=== PATIENT | female | born 1985 | race Two or more races ===

== ENCOUNTER 2020-07-12 11:27 | Emergency (ER) | payer MEDICARE, OTHER ==
[~2020-07-12] VITALS: Ht 157.5 cm; Wt 72.6 kg
[2020-07-12 13:35] VITALS: BP 140/97
== END 2020-07-12 14:47 | disposition home or self-care (01) ==
LOC: ER 11:27
DX: L02.31 Cutaneous abscess of buttock (principal); B99.8 Other infectious disease

== ENCOUNTER 2020-07-26 20:46 | Emergency (ER) | payer MEDICARE, MEDICAID ==
[~2020-07-26] VITALS: Ht 157.5 cm; Wt 67.1 kg
[2020-07-27 01:00] VITALS: BP 138/99
== END 2020-07-27 01:11 | disposition home or self-care (01) ==
LOC: ER 20:53
DX: S93.491A Sprain of other ligament of right ankle, initial encounter (principal); M25.561 Pain in right knee; F32.9 Major depressive disorder, single episode, unspecified; E11.9 Type 2 diabetes mellitus without complications; Z98.890 Other specified postprocedural states; Z94.0 Kidney transplant status; X58.XXXA Exposure to other specified factors, initial encounter; Y93.89 Activity, other specified; Y92.89 Other specified places as the place of occurrence of the external cause; Y99.8 Other external cause status
CPT/HCPCS: 73562; 73610

== ENCOUNTER 2021-03-05 12:55 | Inpatient (IN) | payer MEDICARE, OTHER ==
[~2021-03-05] VITALS: Ht 157.5 cm; Wt 73.0 kg
[2021-03-05 16:00] LABS: Basophils # (auto) 0 10 ^3/uL (0-0.2); Eosinophils # (auto) 0 10 ^3/uL (0-0.8); Eosinophils % (auto) 0.3 % (0.0-7.0); Mean Corpuscular Hgb Conc. 32.7 g/dL (32.0-36.0); White Blood Cell 6.4 10^3/uL (4.4-10.8)
[2021-03-05 16:03] LABS: Basophils % (auto) 0.1 % (0.0-2.0); Hematocrit 24.9 % (36.0-46.0); Hemoglobin 8.1 g/dL (12.2-16.2); Lymphocytes # (auto) 0.4 10 ^3/uL (0.4-5.4); Lymphocytes % (auto) 5.6 % (10.0-50.0); Mean Corpuscular Hemoglobin 30.5 pg (28.0-32.0); Mean Corpuscular Volume 93.5 fL (80.0-100.0); Monocytes # (auto) 0.5 10 ^3/uL (0-1.3); Monocytes % (auto) 8.2 % (0.0-12.0); Neutrophils # (auto) 5.5 10 ^3/uL (1.6-8.6); Neutrophils % (auto) 85.8 % (37.0-80.0); Red Blood Cells 2.67 10^6/uL (4.0-5.20); Red Cell Distribution Width 15.7 % (11.8-14.3)
[2021-03-05 16:14] LABS: INR 1.1 (0.9-1.15); Partial Thromboplastin Time 35.8 sec (23.6-33.0)
[2021-03-05 16:18] LABS: Albumin 2.8 g/dL (3.4-5.0); Calcium 8.1 mg/dL (8.5-10.1); Potassium 5.3 mmol/L (3.5-5.1)
[2021-03-05 16:21] LABS: BUN/Creatinine Ratio 12.8; Bilirubin, Total 0.3 mg/dL (0.2-1.0); Total Protein 7.3 g/dL (6.4-8.2)
[2021-03-05 16:54] LABS: Urine Bacteria NONE SEEN /hpf (None Seen); Urine Blood 3+ /uL (Negative); Urine Specific Gravity 1.018 (1.001-1.035); Urine WBC 172 /hpf (0 - 5)
[2021-03-05] MEDS ORDERED: MORPHINE SULFATE INJECTION 2 MG/ML SYRG IV PRN (17:30)
[2021-03-05] MEDS ORDERED: NITROGLYCERIN 0.4 MG SL TAB SL PRN (17:30)
[2021-03-05 21:42] LABS: Magnesium 1.7 mg/dL (1.6-2.6); Phosphorus 1.7 mg/dL (2.5-4.90)
[2021-03-05] MEDS ORDERED: SODIUM CHLORIDE 0.9% 1,000 ML IV ONE (22:30)
[2021-03-06 00:57] LABS: Magnesium 1.6 mg/dL (1.6-2.6); Phosphorus 2.1 mg/dL (2.5-4.90)
[2021-03-06 02:36] VITALS: BP 116/72
[2021-03-06] MEDS ORDERED: PREG100C PO (03:54)
[2021-03-06] MEDS ORDERED: ASPI1TAB20 PO (03:54)
[2021-03-06] MEDS ORDERED: FLUO60TA7 PO (03:54)
[2021-03-06] MEDS ORDERED: PRE1T PO (03:54)
[2021-03-06] MEDS ORDERED: MESA4KIT3 RE (03:54)
[2021-03-06] MEDS ORDERED: MIDO2.5T3 PO (03:56)
[2021-03-06 05:00] VITALS: BP 134/85
[2021-03-06 08:26] LABS: Basophils # (auto) 0 10 ^3/uL (0-0.2); Eosinophils # (auto) 0 10 ^3/uL (0-0.8); Hematocrit 22.3 % (36.0-46.0); Lymphocytes # (auto) 0.4 10 ^3/uL (0.4-5.4); Monocytes # (auto) 0.3 10 ^3/uL (0-1.3); Red Cell Distribution Width 15.2 % (11.8-14.3)
[2021-03-06 08:28] LABS: Basophils % (auto) 0.2 % (0.0-2.0); Eosinophils % (auto) 0.3 % (0.0-7.0); Hemoglobin 7.1 g/dL (12.2-16.2); Lymphocytes % (auto) 8.3 % (10.0-50.0); Mean Corpuscular Hemoglobin 30.1 pg (28.0-32.0); Mean Corpuscular Hgb Conc. 31.9 g/dL (32.0-36.0); Mean Corpuscular Volume 94.3 fL (80.0-100.0); Neutrophils # (auto) 4.3 10 ^3/uL (1.6-8.6); Neutrophils % (auto) 85.2 % (37.0-80.0); Red Blood Cells 2.37 10^6/uL (4.0-5.20)
[2021-03-06 08:48] LABS: Potassium 4.1 mmol/L (3.5-5.1)
[2021-03-06 09:00] VITALS: BP 141/79
[2021-03-06 09:00] LABS: INR 1.09 (0.9-1.15); Partial Thromboplastin Time 39.4 sec (23.6-33.0)
[2021-03-06 09:03] LABS: % Iron Saturation 11.1 % (15-50)
[2021-03-06 09:24] LABS: Albumin 2.3 g/dL (3.4-5.0); BUN/Creatinine Ratio 11.9; Bilirubin, Total 0.3 mg/dL (0.2-1.0); Calcium 7.3 mg/dL (8.5-10.1); Total Protein 6.5 g/dL (6.4-8.2)
[2021-03-06] MEDS ORDERED: SODIUM FERR GLUC 62.5MG/5ML 125 MG in SODIUM CHL 0.9% 100 ML IV ONE (12:45)
[2021-03-06 13:00] VITALS: BP 132/67
[2021-03-06] MEDS ORDERED: ACETAMINOPHEN 500 MG TAB PO PRN (13:00)
[2021-03-06] MEDS ORDERED: PANTOPRAZOLE 40 MG/10 ML VIAL INJ IV ONE (13:00)
[2021-03-06] MEDS ORDERED: ALBUTEROL SULF HFA 90MCG INH 200DOSE IN PRN (13:00)
[2021-03-06] MEDS ORDERED: BUMETANIDE 2.5mg/10ml (0.25 mg/ml) INJ IV ONE (13:00)
[2021-03-06] MEDS ORDERED: ALBUMIN 25% 100 ML IV SCH (13:15)
[2021-03-06] MEDS ORDERED: ALBUMIN 25% 100 ML IV ONE (13:15)
[2021-03-06] MEDS ORDERED: LORazepam 0.5 MG TAB PO PRN (13:30)
[2021-03-06] MEDS ORDERED: ALUM & MAG HYDROX-SIMETH LIQ(MAALOX) 30 ML PO PRN (13:30)
[2021-03-06] MEDS ORDERED: NITROGLYCERIN 0.4 MG SL TAB SL PRN (13:30)
[2021-03-06] MEDS ORDERED: DOCUSATE SOD 100 MG CAP PO PRN (13:30)
[2021-03-06] MEDS ORDERED: ACETAMINOPHEN 325 MG TAB PO PRN (13:30)
[2021-03-06] MEDS ORDERED: HYDROcodone-ACET 5/325MG TAB PO PRN (13:30)
[2021-03-06] MEDS ORDERED: METOCLOPRAMIDE HCL 5MG/ml INJ 2ml VIAL IV PRN (13:30)
[2021-03-06] MEDS ORDERED: MORPHINE SULFATE INJECTION 2 MG/ML SYRG IV PRN ×2 (13:30)
[2021-03-06] MEDS: SODIUM CHLORIDE 0.9% 1,000 ML IV SCH (14:00)
[2021-03-06] MEDS: azaTHIOprine 50 MG TAB PO SCH (16:20)
[2021-03-06 17:00] VITALS: BP 130/67
[2021-03-06] MEDS ORDERED: BUMETANIDE 2.5mg/10ml (0.25 mg/ml) INJ IV SCH (18:00)
[2021-03-06 18:18] LABS: Basophils # (auto) 0 10 ^3/uL (0-0.2); Basophils % (auto) 0.1 % (0.0-2.0); Eosinophils # (auto) 0 10 ^3/uL (0-0.8); Lymphocytes # (auto) 0.5 10 ^3/uL (0.4-5.4); Neutrophils # (auto) 5.4 10 ^3/uL (1.6-8.6); White Blood Cell 6.3 10^3/uL (4.4-10.8)
[2021-03-06 18:20] LABS: Eosinophils % (auto) 0.2 % (0.0-7.0); Hematocrit 22.3 % (36.0-46.0); Lymphocytes % (auto) 7.7 % (10.0-50.0); Mean Corpuscular Hemoglobin 30.3 pg (28.0-32.0); Mean Corpuscular Hgb Conc. 31.5 g/dL (32.0-36.0); Monocytes # (auto) 0.4 10 ^3/uL (0-1.3); Monocytes % (auto) 5.9 % (0.0-12.0); Neutrophils % (auto) 86.1 % (37.0-80.0); Red Blood Cells 2.33 10^6/uL (4.0-5.20); Red Cell Distribution Width 15.6 % (11.8-14.3)
[2021-03-06 18:40] LABS: Albumin 2.8 g/dL (3.4-5.0); Calcium 7.4 mg/dL (8.5-10.1); Lactic Acid w/Reflex 3.1 mmol/L (0.4-2.0); Magnesium 2.3 mg/dL (1.6-2.6); Potassium 4.7 mmol/L (3.5-5.1)
[2021-03-06 19:03] LABS: Thyroid Stimulating Hormone 0.9 uIU/mL (0.358-3.74)
[2021-03-06 19:07] LABS: Cholesterol 75 mg/dL (< 200); HDL Cholesterol 18 mg/dL (40-59); LDL Cholesterol 44 mg/dL (< 100); Triglycerides 99 mg/dL (< 150)
[2021-03-06 19:08] LABS: BUN/Creatinine Ratio 11.2; Bilirubin, Total 0.3 mg/dL (0.2-1.0); CRP High Sensitivity 18.6 mg/dL (< 0.3); Total Protein 6.7 g/dL (6.4-8.2)
[2021-03-06] MEDS: ALBUMIN 25% 100 ML IV SCH (21:33)
[2021-03-06] MEDS: DOXYCYCLINE 100MG/250ML 250 ML IV SCH (21:34)
[2021-03-06] MEDS: PANTOPRAZOLE 40 MG/10 ML VIAL INJ IV SCH (21:34)
[2021-03-06] MEDS: MESALAMINE 1.2 GM PO SCH (21:34)
[2021-03-06 22:00] VITALS: BP 128/75
[2021-03-06] MEDS ORDERED: ENOXAPARIN SOD 40 MG/0.4 ML SYRINGE SC SCH (22:00)
[2021-03-06] MEDS ORDERED: BUDESONIDE (INHALATION) 180 MCG IH IN SCH (22:00)
[2021-03-07] VITALS (74 sets, daily range): BP systolic 53–207; BP diastolic 26–120
[2021-03-07] MEDS ORDERED: ETOMIDATE (2MG/ML) 20ML VIAL IV ONE ×2 (05:45→06:30)
[2021-03-07] MEDS ORDERED: SUCCINYLCHOLINE CHLORIDE 20 MG/ML 10ML VIAL IV ONE ×2 (05:45→06:30)
[2021-03-07] MEDS ORDERED: HEPARIN SODIUM (PORCINE) 5000 UNITS/ML 1ML VIAL ONE (05:56)
[2021-03-07] MEDS ORDERED: NOREPINEPHRINE 8 MG/250ML KIT 250 ML IV ONE (06:01)
[2021-03-07] MEDS ORDERED: MIDAZOLAM HCL 5 MG/ML-1ML VIAL ONE (06:06)
[2021-03-07] MEDS: MIDAZOLAM DRIP 50 mg/50mL 50 ML IV SCH ×2 (06:30→18:54)
[2021-03-07] MEDS: NOREPINEPHRINE 8 MG/250ML KIT 250 ML IV SCH (06:30)
[2021-03-07] MEDS: fentaNYL Drip 2500mCg/250mlNS 250 ML IV SCH (06:30)
[2021-03-07] MEDS ORDERED: MIDAZOLAM HCL 5 MG/ML-1ML VIAL IV ONE (06:30)
[2021-03-07] MEDS: PROPOFOL 100 ML IV SCH (06:30)
[2021-03-07] MEDS: HEPARIN SODIUM (PORCINE) 5000 UNITS/ML 1ML VIAL SC SCH ×3 (07:21→22:00)
[2021-03-07] MEDS: SODIUM CHLORIDE 0.9% 1,000 ML IV SCH ×3 (07:22→16:12)
[2021-03-07] MEDS: ALBUMIN 25% 100 ML IV SCH ×2 (07:23→13:49)
[2021-03-07] MEDS ORDERED: MESALAMINE 400mg Delayed Release Cap PO SCH (08:00)
[2021-03-07] MEDS: IVERMECTIN 3 MG TAB PO SCH (10:00)
[2021-03-07] MEDS: CHOLECALCIFEROL (VITD3) 2,000 UNIT CAP/TAB PO SCH (10:00)
[2021-03-07] MEDS: ASCORBIC ACID 1,000 MG TAB PO SCH (10:00)
[2021-03-07] MEDS: PANTOPRAZOLE 40 MG/10 ML VIAL INJ IV SCH ×2 (10:00→22:00)
[2021-03-07] MEDS: azaTHIOprine 50 MG TAB PO SCH (10:00)
[2021-03-07] MEDS: ZINC SULFATE 220mg CAP or TAB PO SCH (10:00)
[2021-03-07] MEDS: DexAMETHasone SOD PHOS 10MG/1ML VIAL INJ IV SCH (10:00)
[2021-03-07] MEDS: DOXYCYCLINE 100MG/250ML 250 ML IV SCH ×2 (10:29→22:00)
[2021-03-07] MEDS: MESALAMINE 1.2 GM PO SCH ×2 (11:11→22:00)
[2021-03-07] MEDS ORDERED: PHENYLEPHRINE IV 250 ML IV ONE (11:47)
[2021-03-07] MEDS ORDERED: SODIUM FERR GLUC 62.5MG/5ML 125 MG in SODIUM CHL 0.9% 100 ML IV SCH (12:00)
[2021-03-07 12:33] LABS: Basophils # (auto) 0 10 ^3/uL (0-0.2); Basophils % (auto) 0.2 % (0.0-2.0); Eosinophils # (auto) 0 10 ^3/uL (0-0.8); Eosinophils % (auto) 0.1 % (0.0-7.0); Hematocrit 22.6 % (36.0-46.0); Lymphocytes # (auto) 0.4 10 ^3/uL (0.4-5.4); Lymphocytes % (auto) 10.4 % (10.0-50.0); Mean Corpuscular Hemoglobin 29.6 pg (28.0-32.0); Mean Corpuscular Hgb Conc. 30.1 g/dL (32.0-36.0); Mean Corpuscular Volume 98.6 fL (80.0-100.0); Monocytes # (auto) 0.1 10 ^3/uL (0-1.3); Monocytes % (auto) 4.1 % (0.0-12.0); Neutrophils % (auto) 85.2 % (37.0-80.0); Nucleated Red Blood Cells % 0.3 %; Red Blood Cells 2.29 10^6/uL (4.0-5.20); Red Cell Distribution Width 16.5 % (11.8-14.3); White Blood Cell 3.5 10^3/uL (4.4-10.8)
[2021-03-07 12:36] LABS: Hemoglobin 6.8 g/dL (12.2-16.2)
[2021-03-07 12:54] LABS: Potassium 4.1 mmol/L (3.5-5.1)
[2021-03-07 13:14] LABS: Albumin 3.2 g/dL (3.4-5.0); Bilirubin, Total 0.3 mg/dL (0.2-1.0); Calcium 7.2 mg/dL (8.5-10.1); Total Protein 6.4 g/dL (6.4-8.2)
[2021-03-07] MEDS: IRON SUCROSE COMPLEX 200 MG in SODIUM CHL 0.9% 100 ML IV SCH (13:48)
[2021-03-07] MEDS: SODIUM BICARBONATE 650 MG TAB PO SCH ×3 (14:48→22:00)
[2021-03-07] MEDS ORDERED: EPOETIN ALFA-EPBX 10,000 UNIT/1ML VIAL SC ONE (19:15)
[2021-03-08] VITALS (87 sets, daily range): BP systolic 86–233; BP diastolic 54–138
[2021-03-08] MEDS: SODIUM CHLORIDE 0.9% 1,000 ML IV SCH ×2 (04:00→13:30)
[2021-03-08] MEDS: SODIUM BICARBONATE 650 MG TAB PO SCH (06:00)
[2021-03-08] MEDS: PROPOFOL 100 ML IV SCH ×2 (06:30→15:44)
[2021-03-08] MEDS: fentaNYL Drip 2500mCg/250mlNS 250 ML IV SCH (06:30)
[2021-03-08] MEDS: NOREPINEPHRINE 8 MG/250ML KIT 250 ML IV SCH (06:30)
[2021-03-08] MEDS ORDERED: HEPARIN 1,000 UNITS/ml 1ML VIAL IV ONE (07:30)
[2021-03-08] MEDS: HEPARIN SODIUM (PORCINE) 5000 UNITS/ML 1ML VIAL SC SCH ×2 (09:41→22:00)
[2021-03-08 09:49] LABS: Basophils # (auto) 0 10 ^3/uL (0-0.2); Eosinophils # (auto) 0 10 ^3/uL (0-0.8); Lymphocytes # (auto) 0.2 10 ^3/uL (0.4-5.4); Lymphocytes % (auto) 1.9 % (10.0-50.0); Monocytes # (auto) 0.6 10 ^3/uL (0-1.3); Monocytes % (auto) 5.1 % (0.0-12.0)
[2021-03-08 09:50] LABS: Albumin 2.5 g/dL (3.4-5.0); Calcium 6.7 mg/dL (8.5-10.1); Potassium 3.6 mmol/L (3.5-5.1)
[2021-03-08 09:51] LABS: Mean Corpuscular Hgb Conc. 32.6 g/dL (32.0-36.0); Mean Corpuscular Volume 88.9 fL (80.0-100.0); Neutrophils # (auto) 10.5 10 ^3/uL (1.6-8.6); Red Blood Cells 2.36 10^6/uL (4.0-5.20); Red Cell Distribution Width 17.9 % (11.8-14.3); White Blood Cell 11.3 10^3/uL (4.4-10.8)
[2021-03-08 09:54] LABS: BUN/Creatinine Ratio 7.7; Bilirubin, Total 0.4 mg/dL (0.2-1.0); Total Protein 5.7 g/dL (6.4-8.2)
[2021-03-08 09:55] LABS: Hemoglobin 6.8 g/dL (12.2-16.2)
[2021-03-08] MEDS ORDERED: EPOETIN ALFA-EPBX 10,000 UNIT/1ML VIAL SC ONE (11:00)
[2021-03-08 15:03] LABS: Basophils # (auto) 0 10 ^3/uL (0-0.2); Basophils % (auto) 0.2 % (0.0-2.0); Eosinophils # (auto) 0 10 ^3/uL (0-0.8); Hematocrit 28.3 % (36.0-46.0); Hemoglobin 9.4 g/dL (12.2-16.2); Lymphocytes # (auto) 0.3 10 ^3/uL (0.4-5.4); Mean Corpuscular Hemoglobin 29.1 pg (28.0-32.0); Mean Corpuscular Hgb Conc. 33.3 g/dL (32.0-36.0); Mean Corpuscular Volume 87.4 fL (80.0-100.0); Monocytes # (auto) 0.6 10 ^3/uL (0-1.3); Monocytes % (auto) 4.7 % (0.0-12.0); Neutrophils # (auto) 12.3 10 ^3/uL (1.6-8.6); Neutrophils % (auto) 93.1 % (37.0-80.0); Red Blood Cells 3.24 10^6/uL (4.0-5.20); Red Cell Distribution Width 16.5 % (11.8-14.3); White Blood Cell 13.3 10^3/uL (4.4-10.8)
[2021-03-08] MEDS: PANTOPRAZOLE 40 MG/10 ML VIAL INJ IV SCH ×2 (15:43→22:00)
[2021-03-08] MEDS: MESALAMINE 1.2 GM PO SCH (15:43)
[2021-03-08] MEDS: DexAMETHasone SOD PHOS 10MG/1ML VIAL INJ IV SCH (15:43)
[2021-03-08] MEDS: ZINC SULFATE 220mg CAP or TAB PO SCH (15:44)
[2021-03-08] MEDS: ASCORBIC ACID 1,000 MG TAB PO SCH (15:44)
[2021-03-08] MEDS: CHOLECALCIFEROL (VITD3) 2,000 UNIT CAP/TAB PO SCH (15:44)
[2021-03-08] MEDS: IRON SUCROSE COMPLEX 200 MG in SODIUM CHL 0.9% 100 ML IV SCH (15:44)
[2021-03-08] MEDS: IVERMECTIN 3 MG TAB PO SCH (15:44)
[2021-03-08] MEDS: hydrALAZINE HCL 20 MG/ML VL IV PRN (18:21)
[2021-03-08] MEDS ORDERED: EPINEPHrine HCL 1 MG/10 ML SYRG IV ONE (18:47)
[2021-03-08] MEDS ORDERED: DEXTROSE (50%) 50ML SYRG IV ONE (18:47)
[2021-03-08] MEDS ORDERED: LIDOCAINE HCL 100 MG/5ML (2%) SYRG INJ IV ONE (18:47)
[2021-03-08] MEDS ORDERED: SODIUM BICARBONATE 8.4 % INJ 50ML VIAL IV ONE (18:47)
[2021-03-08] MEDS ORDERED: ATROPINE SULF 1 MG/10ml SYR IM ONE (18:47)
[2021-03-08] MEDS: DOXYCYCLINE 100MG/250ML 250 ML IV SCH ×2 (22:00)
[2021-03-09] VITALS (69 sets, daily range): BP systolic 93–201; BP diastolic 59–122
[2021-03-09] MEDS: NOREPINEPHRINE 8 MG/250ML KIT 250 ML IV SCH (06:30)
[2021-03-09 07:06] LABS: Basophils # (auto) 0 10 ^3/uL (0-0.2); Basophils % (auto) 0.2 % (0.0-2.0); Eosinophils # (auto) 0 10 ^3/uL (0-0.8); Hematocrit 23.8 % (36.0-46.0); Hemoglobin 8.2 g/dL (12.2-16.2); Lymphocytes # (auto) 0.2 10 ^3/uL (0.4-5.4); Lymphocytes % (auto) 2.1 % (10.0-50.0); Mean Corpuscular Hgb Conc. 34.4 g/dL (32.0-36.0); Mean Corpuscular Volume 87.1 fL (80.0-100.0); Monocytes # (auto) 0.4 10 ^3/uL (0-1.3); Monocytes % (auto) 4.1 % (0.0-12.0); Neutrophils # (auto) 10.1 10 ^3/uL (1.6-8.6); Neutrophils % (auto) 93.6 % (37.0-80.0); Red Blood Cells 2.73 10^6/uL (4.0-5.20); White Blood Cell 10.8 10^3/uL (4.4-10.8)
[2021-03-09 07:37] LABS: Potassium 3.4 mmol/L (3.5-5.1)
[2021-03-09] MEDS: SODIUM CHLORIDE 0.9% 1,000 ML IV SCH (08:00)
[2021-03-09 08:04] LABS: Albumin 2.4 g/dL (3.4-5.0); BUN/Creatinine Ratio 10.2; Bilirubin, Total 0.4 mg/dL (0.2-1.0); Total Protein 5.9 g/dL (6.4-8.2)
[2021-03-09] MEDS: MIDAZOLAM DRIP 50 mg/50mL 50 ML IV SCH ×3 (08:56→16:49)
[2021-03-09] MEDS: DOXYCYCLINE 100MG/250ML 250 ML IV SCH ×2 (10:50→23:23)
[2021-03-09] MEDS: PANTOPRAZOLE 40 MG/10 ML VIAL INJ IV SCH ×2 (10:50→23:23)
[2021-03-09] MEDS: CHOLECALCIFEROL (VITD3) 2,000 UNIT CAP/TAB PO SCH (10:51)
[2021-03-09] MEDS: DexAMETHasone SOD PHOS 10MG/1ML VIAL INJ IV SCH (10:51)
[2021-03-09] MEDS: ZINC SULFATE 220mg CAP or TAB PO SCH (10:52)
[2021-03-09] MEDS: IVERMECTIN 3 MG TAB PO SCH (10:52)
[2021-03-09] MEDS: ASCORBIC ACID 1,000 MG TAB PO SCH (10:53)
[2021-03-09] MEDS: HEPARIN SODIUM (PORCINE) 5000 UNITS/ML 1ML VIAL SC SCH ×2 (10:54→23:24)
[2021-03-09] MEDS: SODIUM FERR GLUC 62.5MG/5ML 125 MG in SODIUM CHL 0.9% 100 ML IV SCH (13:45)
[2021-03-09] MEDS: PROPOFOL 100 ML IV SCH ×2 (13:46→19:35)
[2021-03-09] MEDS: MESALAMINE 1.2 GM PO SCH (14:45)
[2021-03-09] MEDS: hydrALAZINE HCL 20 MG/ML VL IV PRN (16:48)
[2021-03-09] MEDS: fentaNYL Drip 2500mCg/250mlNS 250 ML IV SCH (16:51)
[2021-03-10] VITALS (80 sets, daily range): BP systolic 89–182; BP diastolic 58–110
[2021-03-10 04:27] LABS: Eosinophils # (auto) 0 10 ^3/uL (0-0.8); Lymphocytes # (auto) 0.2 10 ^3/uL (0.4-5.4); Lymphocytes % (auto) 1.7 % (10.0-50.0)
[2021-03-10 04:28] LABS: Basophils # (auto) 0 10 ^3/uL (0-0.2); Basophils % (auto) 0.2 % (0.0-2.0); Hematocrit 25.1 % (36.0-46.0); Hemoglobin 8.3 g/dL (12.2-16.2); Mean Corpuscular Hemoglobin 28.9 pg (28.0-32.0); Mean Corpuscular Hgb Conc. 32.9 g/dL (32.0-36.0); Mean Corpuscular Volume 87.6 fL (80.0-100.0); Monocytes # (auto) 0.5 10 ^3/uL (0-1.3); Monocytes % (auto) 4.3 % (0.0-12.0); Neutrophils # (auto) 11.3 10 ^3/uL (1.6-8.6); Neutrophils % (auto) 93.8 % (37.0-80.0); Nucleated Red Blood Cells % 0.9 %; Red Blood Cells 2.87 10^6/uL (4.0-5.20); Red Cell Distribution Width 17.2 % (11.8-14.3); White Blood Cell 12.1 10^3/uL (4.4-10.8)
[2021-03-10 04:34] LABS: Albumin 2.2 g/dL (3.4-5.0); BUN/Creatinine Ratio 14.4; Calcium 6.9 mg/dL (8.5-10.1); Potassium 3.8 mmol/L (3.5-5.1)
[2021-03-10 04:37] LABS: Bilirubin, Total 0.4 mg/dL (0.2-1.0); Total Protein 5.9 g/dL (6.4-8.2)
[2021-03-10] MEDS: fentaNYL Drip 2500mCg/250mlNS 250 ML IV SCH (06:30)
[2021-03-10] MEDS: NOREPINEPHRINE 8 MG/250ML KIT 250 ML IV SCH (06:30)
[2021-03-10] MEDS ORDERED: SODIUM CHL 0.9% 1000 ML BAG XX ONE (07:00)
[2021-03-10] MEDS: MIDAZOLAM DRIP 50 mg/50mL 50 ML IV SCH ×4 (07:30→19:29)
[2021-03-10] MEDS ORDERED: hydrALAZINE HCL 20 MG/ML VL IV PRN (09:30)
[2021-03-10] MEDS: ASCORBIC ACID 1,000 MG TAB PO SCH (14:30)
[2021-03-10] MEDS: HEPARIN SODIUM (PORCINE) 5000 UNITS/ML 1ML VIAL SC SCH ×2 (14:30→21:28)
[2021-03-10] MEDS: DexAMETHasone SOD PHOS 10MG/1ML VIAL INJ IV SCH (14:30)
[2021-03-10] MEDS: ZINC SULFATE 220mg CAP or TAB PO SCH (14:30)
[2021-03-10] MEDS: DOXYCYCLINE 100MG/250ML 250 ML IV SCH ×2 (14:30→21:29)
[2021-03-10] MEDS: PANTOPRAZOLE 40 MG/10 ML VIAL INJ IV SCH ×2 (14:30→21:27)
[2021-03-10] MEDS: MESALAMINE 1.2 GM PO SCH (14:30)
[2021-03-10] MEDS: SODIUM FERR GLUC 62.5MG/5ML 125 MG in SODIUM CHL 0.9% 100 ML IV SCH (14:30)
[2021-03-10] MEDS: CHOLECALCIFEROL (VITD3) 2,000 UNIT CAP/TAB PO SCH (14:30)
[2021-03-10] MEDS ORDERED: Nepro With Carb Steady 1 Liter Bottle NG SCH (16:45)
[2021-03-10] MEDS: FUROSEMIDE 40 MG/4 ML VIAL IV SCH (18:22)
[2021-03-10] MEDS: PROPOFOL 100 ML IV SCH (19:28)
[2021-03-10] MEDS ORDERED: EPOETIN ALFA-EPBX 4,000 UNIT/ML VIAL SC ONE (21:00)
[2021-03-11] VITALS (93 sets, daily range): BP systolic 78–178; BP diastolic 41–103
[2021-03-11] MEDS: PROPOFOL 100 ML IV SCH ×2 (00:40→10:09)
[2021-03-11] MEDS: MIDAZOLAM DRIP 50 mg/50mL 50 ML IV SCH ×6 (02:01→23:56)
[2021-03-11] MEDS: fentaNYL Drip 2500mCg/250mlNS 250 ML IV SCH ×3 (04:31→23:57)
[2021-03-11 04:49] LABS: Albumin 1.9 g/dL (3.4-5.0); BUN/Creatinine Ratio 16.4; Calcium 6.9 mg/dL (8.5-10.1); Potassium 3.6 mmol/L (3.5-5.1)
[2021-03-11 04:51] LABS: Bilirubin, Total 0.5 mg/dL (0.2-1.0); Total Protein 5.6 g/dL (6.4-8.2)
[2021-03-11 05:10] LABS: Hematocrit 26.6 % (36.0-46.0); Hemoglobin 8.7 g/dL (12.2-16.2); Mean Corpuscular Hemoglobin 28.9 pg (28.0-32.0); Mean Corpuscular Hgb Conc. 32.9 g/dL (32.0-36.0); Mean Corpuscular Volume 88.1 fL (80.0-100.0); Red Blood Cells 3.02 10^6/uL (4.0-5.20); Red Cell Distribution Width 16.7 % (11.8-14.3); White Blood Cell 8.9 10^3/uL (4.4-10.8)
[2021-03-11 05:21] LABS: Basophils % (manual) 0 (0.0-2.0); Blast Cells 0; Eosinophils % (manual) 0 (0-7); Myelocytes % 0; Promyelocytes % 0; Reactive Lymphocytes 0
[2021-03-11] MEDS: NOREPINEPHRINE 8 MG/250ML KIT 250 ML IV SCH ×2 (06:30→08:50)
[2021-03-11] MEDS: FUROSEMIDE 40 MG/4 ML VIAL IV SCH ×2 (06:34→17:43)
[2021-03-11 08:30] LABS: Band Neutrophils % (manual) 26; Lymphocytes % (manual) 6 (10.0-50.0); Metamyelocytes % 1; Monocytes % (manual) 6 (0-12)
[2021-03-11] MEDS: DOXYCYCLINE 100MG/250ML 250 ML IV SCH (09:21)
[2021-03-11] MEDS: ZINC SULFATE 220mg CAP or TAB PO SCH (09:21)
[2021-03-11] MEDS: CHOLECALCIFEROL (VITD3) 2,000 UNIT CAP/TAB PO SCH (09:21)
[2021-03-11] MEDS: MESALAMINE 1.2 GM PO SCH (09:21)
[2021-03-11] MEDS: PANTOPRAZOLE 40 MG/10 ML VIAL INJ IV SCH ×2 (09:21→22:09)
[2021-03-11] MEDS: DexAMETHasone SOD PHOS 10MG/1ML VIAL INJ IV SCH (09:21)
[2021-03-11] MEDS: ASCORBIC ACID 1,000 MG TAB PO SCH (09:21)
[2021-03-11] MEDS: HEPARIN SODIUM (PORCINE) 5000 UNITS/ML 1ML VIAL SC SCH ×2 (09:22→22:10)
[2021-03-11] MEDS: SODIUM FERR GLUC 62.5MG/5ML 125 MG in SODIUM CHL 0.9% 100 ML IV SCH (11:04)
[2021-03-12] VITALS (22 sets, daily range): BP systolic 67–151; BP diastolic 28–104
[2021-03-12] MEDS ORDERED: PHENYLEPHRINE IV 250 ML IV ONE ×2 (01:19→05:33)
[2021-03-12] MEDS ORDERED: VASOPRESSIN 20 UNIT/ML ONE (01:34)
[2021-03-12] MEDS ORDERED: SODIUM BICARBONATE 8.4 % INJ 50ML VIAL IV ONE ×4 (02:00→06:37)
[2021-03-12] MEDS ORDERED: PHENYLEPHRINE IV 500 ML IV ONE (03:17)
[2021-03-12] MEDS ORDERED: SODIUM BICARBONATE 8.4% INJ 50ML SYRINGE ONE ×2 (05:28→05:33)
[2021-03-12] MEDS ORDERED: EPINEPHrine HCL 250 ML IV ONE (05:38)
[2021-03-12 05:57] LABS: Potassium 3.3 mmol/L (3.5-5.1)
[2021-03-12] MEDS ORDERED: EPINEPHrine HCL 250 ML IV SCH (06:00)
[2021-03-12] MEDS ORDERED: PHENYLEPHRINE IV 250 ML IV SCH (06:00)
[2021-03-12] MEDS ORDERED: VASOPRESSIN 50 UNITS in D5W 5% 247.5 ML IV SCH (06:00)
[2021-03-12 06:01] LABS: Albumin 1.6 g/dL (3.4-5.0); BUN/Creatinine Ratio 14.7; Calcium 7.1 mg/dL (8.5-10.1)
[2021-03-12] MEDS ORDERED: DOPamine 1600MCG/ML D5W 250 ML IV ONE (06:05)
[2021-03-12 06:06] LABS: Bilirubin, Total 1.4 mg/dL (0.2-1.0); Total Protein 5.3 g/dL (6.4-8.2)
== END 2021-03-12 06:40 | DRG 870 ==
LOC: ER 12:55 → OVERFLOW 17:20 → WEST WING 23:45 → ICU WEST 03-07 06:12 → UNDODISIN 03-12 06:50
PROVIDERS: ADMIT Hospitalist; ATTEND Internal Medicine
PROC: 5A1955Z Respiratory Ventilation, Greater than 96 Consecutive Hours (ICD-10-PCS; principal; 2021-03-07)
PROC: 0BH17EZ Insertion of Endotracheal Airway into Trachea, Via Natural or Artificial Opening (ICD-10-PCS; 2021-03-07)
PROC: 30233N1 Transfusion of Nonautologous Red Blood Cells into Peripheral Vein, Percutaneous Approach (ICD-10-PCS; 2021-03-07)
PROC: 06HM33Z Insertion of Infusion Device into Right Femoral Vein, Percutaneous Approach (ICD-10-PCS; 2021-03-08)
PROC: 06HN33Z Insertion of Infusion Device into Left Femoral Vein, Percutaneous Approach (ICD-10-PCS; 2021-03-08)
PROC: 5A1D70Z Performance of Urinary Filtration, Intermittent, Less than 6 Hours Per Day (ICD-10-PCS; 2021-03-08)
PROC: 5A1D70Z Performance of Urinary Filtration, Intermittent, Less than 6 Hours Per Day (ICD-10-PCS; 2021-03-10)
PROC: 5A12012 Performance of Cardiac Output, Single, Manual (ICD-10-PCS; 2021-03-12)
DX: A41.9 Sepsis, unspecified organism (principal); U07.1 COVID-19; J96.01 Acute respiratory failure with hypoxia; N17.0 Acute kidney failure with tubular necrosis; J12.82 Pneumonia due to coronavirus disease 2019; R65.21 Severe sepsis with septic shock; D68.59 Other primary thrombophilia; N18.4 Chronic kidney disease, stage 4 (severe); N39.0 Urinary tract infection, site not specified; J98.11 Atelectasis; Z94.83 Pancreas transplant status; T86.19 Other complication of kidney transplant; D84.9 Immunodeficiency, unspecified; D50.9 Iron deficiency anemia, unspecified; E87.5 Hyperkalemia; E88.09 Other disorders of plasma-protein metabolism, not elsewhere classified; E10.22 Type 1 diabetes mellitus with diabetic chronic kidney disease; E10.40 Type 1 diabetes mellitus with diabetic neuropathy, unspecified; I46.9 Cardiac arrest, cause unspecified; F32.A Depression, unspecified; Y83.0 Surgical operation with transplant of whole organ as the cause of abnormal reaction of the patient, or of later complication, without mention of misadventure at the time of the procedure; F32.9 Major depressive disorder, single episode, unspecified; K52.9 Noninfective gastroenteritis and colitis, unspecified; Z79.82 Long term (current) use of aspirin; Z79.899 Other long term (current) drug therapy; Y92.89 Other specified places as the place of occurrence of the external cause
CPT/HCPCS: 36415; 36600; 70450; 71045; 74176; 76775; 76856; 80053; 80061; 81001; 82306; 82728; 82805; 82962; 83036; 83540; 83550; 83605; 83615; 83735; 83880; 83970; 84100; 84443; 84484; 85007; 85025; 85027; 85379; 85610; 85730; 86141; 86850; 86900; 86901; 86920; 87040; 87070; 87086; 87088; 87205; 87340; 87426; 90935; 92950; 93005; 94002; 94003; 94640; 99291; C9113; G0378; J0171; J0330; J1100; J1756; J2250; J2704; J3490; J7060; P9047